=== PATIENT | female | born 1925 | race Caucasian/White ===

== ENCOUNTER 2017-08-08 06:01 | Inpatient (IN) | payer MEDICARE, OTHER ==
[~2017-08-08] VITALS: Ht 157.5 cm; Wt 75.4 kg
[2017-08-08 07:08] LABS: HEMATOCRIT 39.1 % (34.6-47.8); HEMOGLOBIN 12.8 g/dL (11.7-16.4); WHITE BLOOD COUNT 6.2 x10^3/uL (3.4-10)
[2017-08-08 07:17] LABS: BLOOD UREA NITROGEN 20 mg/dL (7-18)
[2017-08-08 07:22] LABS: ASPARTATE AMINO TRANSFERASE 41 U/L (15-37)
[2017-08-08 07:26] LABS: IS PT STATUS REG ER OR PRE ER? YES
[2017-08-08] MEDS ORDERED: FUROSEMIDE 20 MG/2 ML ONE (07:54)
[2017-08-08] MEDS: FUROSEMIDE 20 MG/2 ML IV SCH ×3 (07:56→18:35)
[2017-08-08] MEDS ORDERED: METO25TA35 PO (09:13)
[2017-08-08] MEDS ORDERED: ASPI-496 PO (09:16)
[2017-08-08] MEDS ORDERED: LUTE1CAP5 PO (09:18)
[2017-08-08] MEDS ORDERED: ATOR20TA9 PO (09:41)
[2017-08-08] MEDS ORDERED: OMEP-110 PO (09:42)
[2017-08-08] MEDS ORDERED: ALLO300T PO (09:42)
[2017-08-08] MEDS ORDERED: GABA600T2 PO (09:44)
[2017-08-08] MEDS ORDERED: LEVO50TA5 PO (09:45)
[2017-08-08] MEDS ORDERED: FURO20TA3 PO (09:46)
[2017-08-08] MEDS ORDERED: NITR0.4T SL (09:47)
[2017-08-08] MEDS ORDERED: UMEC1DIS PO (09:49)
[2017-08-08] MEDS ORDERED: ALBU8.5H8 INH (09:51)
[2017-08-08] MEDS ORDERED: NITROGLYCERIN 0.4 MG BOTTLE (25 TABS) SL SCH (11:30)
[2017-08-08] MEDS: ASPIRIN 81 MG TABLET EC PO SCH (11:30)
[2017-08-08] MEDS ORDERED: POLYETHYLENE GLYCOL 17 GM PACKET PO PRN (12:00)
[2017-08-08] MEDS ORDERED: BISACODYL 10 MG SUPP PR PRN (12:00)
[2017-08-08] MEDS ORDERED: ACETAMINOPHEN 325 MG TABLET PO PRN (12:00)
[2017-08-08] MEDS ORDERED: DOCUSATE 100 MG CAPSULE PO PRN (12:00)
[2017-08-08] MEDS ORDERED: POTASSIUM CHLORIDE 20 MEQ TAB.ER.PRT PO ONE (12:00)
[2017-08-08 13:03] LABS: IS PT STATUS REG ER OR PRE ER? YES
[2017-08-08 13:47] LABS: PATH.CAST-FLAG NOT PRESENT; SPERM-FLAG NOT PRESENT; SRC-FLAG NOT PRESENT; XTAL-FLAG NOT PRESENT; YLC-FLAG NOT PRESENT
[2017-08-08] MEDS ORDERED: POTASSIUM CHLORIDE 20 MEQ TAB.ER.PRT ONE (14:17)
[2017-08-08] MEDS ORDERED: HEPARIN 5,000 UNITS/ML, 1ML ONE (14:18)
[2017-08-08] MEDS: HEPARIN 5,000 UNITS/ML, 1ML SQ SCH ×2 (14:21→20:59)
[2017-08-08] MEDS ORDERED: ALBUTEROL SULFATE 2.5 MG/3 ML NPPB PRN (16:30)
[2017-08-08 16:37] VITALS: BP 145/85
[2017-08-08 18:54] LABS: IS PT STATUS REG ER OR PRE ER? NO
[2017-08-08 20:00] VITALS: BP 158/90
[2017-08-08] MEDS: METOPROLOL TARTRATE 25 MG TABLET PO SCH (20:58)
[2017-08-08] MEDS ORDERED: ATORVASTATIN 20 MG TABLET PO SCH (21:00)
[2017-08-09 00:38] VITALS: BP 123/79
[2017-08-09] MEDS ORDERED: BISACODYL 10 MG SUPP PR PRN (04:30)
[2017-08-09] MEDS ORDERED: ALBUTEROL SULFATE 2.5 MG/3 ML NPPB PRN (04:30)
[2017-08-09] MEDS ORDERED: DOCUSATE 100 MG CAPSULE PO PRN (04:30)
[2017-08-09] MEDS ORDERED: ACETAMINOPHEN 325 MG TABLET PO PRN (04:30)
[2017-08-09] MEDS ORDERED: POLYETHYLENE GLYCOL 17 GM PACKET PO PRN (04:30)
[2017-08-09] MEDS: HEPARIN 5,000 UNITS/ML, 1ML SQ SCH (05:21)
[2017-08-09 05:37] LABS: HEMATOCRIT 37.2 % (34.6-47.8); HEMOGLOBIN 12.2 g/dL (11.7-16.4); WHITE BLOOD COUNT 4.5 x10^3/uL (3.4-10)
[2017-08-09 05:46] LABS: ASPARTATE AMINO TRANSFERASE 30 U/L (15-37); BLOOD UREA NITROGEN 21 mg/dL (7-18)
[2017-08-09 07:10] VITALS: BP 147/68
[2017-08-09] MEDS: ASPIRIN 81 MG TABLET EC PO SCH ×2 (09:00→09:29)
[2017-08-09] MEDS ORDERED: GABAPENTIN 300 MG CAPSULE PO SCH (09:00)
[2017-08-09] MEDS ORDERED: LEVOTHYROXINE 50 MCG TABLET PO SCH (09:00)
[2017-08-09] MEDS ORDERED: OMEPRAZOLE 20 MG CAPSULE.DR PO SCH (09:00)
[2017-08-09] MEDS: FUROSEMIDE 20 MG/2 ML IV SCH (09:31)
[2017-08-09] MEDS: METOPROLOL TARTRATE 25 MG TABLET PO SCH (09:31)
[2017-08-09] MEDS ORDERED: POTASSIUM CHLORIDE 20 MEQ TAB.ER.PRT PO ONE (10:00)
[2017-08-09] MEDS ORDERED: POTA10TA31 PO (10:16)
== END 2017-08-09 12:40 | disposition home or self-care (01) | DRG 292 ==
LOC: ED 07:04 → EDIP 07:56 → 5SO 15:57
PROVIDERS: ADMIT Internal Medicine; ATTEND Internal Medicine
DX: I50.33 Acute on chronic diastolic (congestive) heart failure (principal); D68.69 Other thrombophilia; D69.6 Thrombocytopenia, unspecified; Z99.81 Dependence on supplemental oxygen; I51.81 Takotsubo syndrome; E87.71 Transfusion associated circulatory overload; J44.9 Chronic obstructive pulmonary disease, unspecified; E03.9 Hypothyroidism, unspecified; E78.5 Hyperlipidemia, unspecified; E87.6 Hypokalemia; I25.10 Atherosclerotic heart disease of native coronary artery without angina pectoris; I48.91 Unspecified atrial fibrillation; M10.9 Gout, unspecified; Z96.653 Presence of artificial knee joint, bilateral; N28.9 Disorder of kidney and ureter, unspecified; Z66 Do not resuscitate; Y84.8 Other medical procedures as the cause of abnormal reaction of the patient, or of later complication, without mention of misadventure at the time of the procedure; Z80.52 Family history of malignant neoplasm of bladder; Z86.73 Personal history of transient ischemic attack (TIA), and cerebral infarction without residual deficits; I25.2 Old myocardial infarction; Z87.891 Personal history of nicotine dependence; Z95.1 Presence of aortocoronary bypass graft; Z95.2 Presence of prosthetic heart valve; Z95.5 Presence of coronary angioplasty implant and graft; Z82.49 Family history of ischemic heart disease and other diseases of the circulatory system; Z88.1 Allergy status to other antibiotic agents; Z88.5 Allergy status to narcotic agent; Z88.2 Allergy status to sulfonamides; Z88.8 Allergy status to other drugs, medicaments and biological substances
CPT/HCPCS: 36415; 71010; 80053; 80061; 81001; 83605; 83880; 84484; 85025; 93005; 93970; 99285; J1644; J1940